=== PATIENT | female | born 1980 | race Two or more races ===

== ENCOUNTER 2024-08-10 12:59 | Emergency (ER) | payer OTHER ==
[~2024-08-10] VITALS: Ht 160 cm; Wt 65.3 kg
[~2024-08-10 12:59] MED LIST: TUSSI PRES-B L120 M1 PO
[2024-08-10 15:09] LABS: BASO % 0.3 % (0.1-1.2); HEMATOCRIT 35.9 % (34.1-44.9); HEMOGLOBIN 11.7 g/dL (11.2-15.7); LYMPH # 1.06 (1.18-3.74); LYMPH % 14.2 % (19.3-53.1); MEAN CORPUSCULAR HEMOGLOBIN 30.2 pg (25.6-32.2); MONO # 0.44 (0.24-0.82); MONO % 5.9 % (4.7-12.5); NEUT # 5.95 (1.56-6.13); NEUT % 79.3 % (34.0-71.1); PLATELET COUNT 224 K/uL (163-369); RED BLOOD COUNT 3.88 M/uL (3.93-5.22); RED CELL DISTRIBUTION WIDTH 12.3 % (11.6-14.4)
[2024-08-10 15:33] LABS: CALCIUM 8.8 mg/dL (8.5-10.1); CREATININE SERUM 0.89 mg/dL (0.55-1.02); GFR 69.22; POTASSIUM 4.15 mEq/L (3.5-5.1)
== END 2024-08-10 16:22 | disposition home or self-care (01) ==
LOC: ER 12:59
PROVIDERS: Emergency Medicine
DX: R42 Dizziness and giddiness (principal); E16.1 Other hypoglycemia; Z91.013 Allergy to seafood